=== PATIENT | female | born 1935 | race Caucasian/White ===

== ENCOUNTER → 2018-07-14 09:28 | Outpatient (CLI) | payer MEDICARE ==
[~2018-07-14 09:28] MED LIST: ASPIRIN EC81 M1 PO; CILOSTAZOL100 MG PO; K-DUR20 MEQ PO; LIPITOR40 MG PO; LOMOTIL 2.5-0.1 EAC1 PO; PLAVIX75 MG PO; ULTRAM50 MG PO
[2018-07-14 12:22] LABS: BASOPHILS 0.2 % (0-2); EOSINOPHILS 1.9 % (0-7); HEMOGLOBIN 14.8 g/dL (12-16); IMMATURE GRANULOCYTES 0.2 % (0-5); LYMPHOCYTES 39.6 % (15-50); MCH 38.7 pg (26.0-34.0); MCHC 35.2 g/dL (31.0-37.0); MCV 109.9 fL (80.0-100.0); MEAN PLATELET VOLUME 8.3 fL (7.4-10.4); MONOCYTES 7.3 % (2-11); NEUTROPHILS 50.8 % (40-80); PLATELET COUNT 242 10x3/uL (130-400); RBC 3.82 10x6/uL (4.00-5.40); RDW 12.4 % (11.5-14.5); WBC 6.3 10x3/uL (4.8-10.8)
[2018-07-19 08:18] VITALS: BMI 15.6
== END | disposition home or self-care (01) ==
LOC: D.CT 09:28
PROVIDERS: ATTEND Internal Medicine Gastroenterology
DX: R10.9 Unspecified abdominal pain (principal); R19.7 Diarrhea, unspecified; K92.1 Melena

== ENCOUNTER 2018-07-19 07:14 | Day surgery (SDC) | payer MEDICARE ==
[~2018-07-19] VITALS: Ht 152.4 cm; Wt 36.4 kg
[2018-07-19 07:40] LABS: BASOPHILS 0.4 % (0-2); HEMATOCRIT 41.1 % (36.0-48.0); HEMOGLOBIN 14.7 g/dL (12-16); IMMATURE GRANULOCYTES 0.1 % (0-5); LYMPHOCYTES 37.7 % (15-50); MCH 39.3 pg (26.0-34.0); MCHC 35.8 g/dL (31.0-37.0); MCV 109.9 fL (80.0-100.0); MEAN PLATELET VOLUME 8.3 fL (7.4-10.4); MONOCYTES 9.4 % (2-11); NEUTROPHILS 50.4 % (40-80); PLATELET COUNT 264 10x3/uL (130-400); RBC 3.74 10x6/uL (4.00-5.40); RDW 12.5 % (11.5-14.5)
[2018-07-19 07:52] LABS: CALC OSMOLALITY 268 mosm/kg (275-300); CALCIUM 9.1 mg/dL (8.5-10.1); CARBON DIOXIDE 23.6 mmol/L (21.0-32.0); CHLORIDE - SERUM 101 mmol/L (98-107); CREATININE - SERUM 0.7 mg/dL (0.6-1.3); GLUCOSE 127 mg/dL (74-106); POTASSIUM - SERUM 3.2 mmol/L (3.5-5.1); SODIUM 135 mmol/L (136-145); UREA NITROGEN 4 mg/dL (7-18); eGFR NON AFRICAN AMERICAN 85 mL/min (90-120)
[2018-07-19] MEDS ORDERED: K-DUR20 MEQ PO (08:09)
[2018-07-19] MEDS ORDERED: PLAVIX75 MG PO (08:09)
[2018-07-19] MEDS ORDERED: LIPITOR40 MG PO (08:10)
[2018-07-19] MEDS ORDERED: ASPIRIN EC81 M1 PO (08:10)
[2018-07-19] MEDS ORDERED: CILOSTAZOL100 MG PO (08:10)
[2018-07-19] MEDS ORDERED: LOMOTIL 2.5-0.1 EAC1 PO (08:11)
[2018-07-19] MEDS ORDERED: ULTRAM50 MG PO (08:11)
[2018-07-19 08:18] VITALS: BP 92/50; Ht 152.4 cm; Wt 36.4 kg
--- NOTE | 2018-07-19 10:33 | NUR ---
PT DC INSTRUCTIONS REVIEWED AT THIS TIME, PT VERBALIZES UNDERSTANDING. PT IV REMOVED AT THIS TIME, INTACT NO REDNESS OR SWELLING NOTED AT SITE.
--- NOTE | 2018-07-19 10:40 | NUR ---
PT LEAVING OPS UNIT AT THIS TIME VIA WC.
--- NOTE | 2018-07-19 16:06 | OP ---
PATIENT NAME: SURAJ FRANKS MEDICAL RECORD: [id number] LOCATION:[facility] ADMISSION DATE: SURGEON: AISHA SOL DO DATE OF OPERATION: 07/19/2018 PROCEDURE: Colonoscopy with biopsies and polypectomy. INDICATIONS FOR PROCEDURE: Diarrhea, hematochezia, lower abdominal pain or loss of weight. SCOPE: Olympus video pediatric colonoscope. MEDICATIONS: Propofol 200 mg IV per anesthesia. ESTIMATED BLOOD LOSS: Minimal. COMPLICATIONS: None. FINDINGS AND DESCRIPTION OF PROCEDURE: Informed consent was given. The patient was made comfortable with the above medication. After reaching an adequate level of sedation by slow IV push, the patient was placed in the left side. A digital rectal examination was performed and revealed external hemorrhoids. The endoscope was advanced under direct visualization through the rectum to the cecum, confirmed by the presence of the appendiceal orifice and ileocecal valve. The endoscope was slowly withdrawn and mucosa was carefully examined. The prep quality was good. There was evidence of moderate diverticulosis involving the sigmoid colon. There was a single, benign-appearing polyp in the descending colon, which measured approximately 3-mm in diameter. It was removed in its entirety using cold forceps. There was a patchy area of abnormal-appearing mucosa at approximately 20 cm from the anal verge in the sigmoid colon, which was erythematous and congested. Cold forceps biopsies were taken to submit for histology. Retroflexion was not performed in the rectum due to difficulty maintaining insufflation. Slow withdrawal revealed some internal hemorrhoids as well. There were no other abnormalities on the colonoscopy. Stool was collected during the study to submit for an xTAG to rule out any infectious reasons for the change in her bowels. Random biopsies were also taken throughout the colon to exclude microscopic colitis. The endoscope was withdrawn from the patient. The patient tolerated the procedure well and there were no complications. IMPRESSIONS: 1. Mild diverticulosis. 2. A single polyp located in the descending colon, which was removed with cold forceps. 3. Abnormal mucosa at 20 cm, which could be consistent with colitis. I believe this is likely just peridiverticular changes. 4. Internal and external hemorrhoids. 5. Random biopsies taken and stool collected to rule out infection and microscopic colitis. PLAN AND RECOMMENDATIONS: 1. Discharge home when recovery parameters are met. 2. High fiber diet. 3. Continue current medications. 4. Okay to continue Imodium or Lomotil as needed as this has resolved her OPERATIVE REPORT [id number] SURAJ FRANKS diarrhea. 5. We will follow up biopsy specimen results. 6. No further colonoscopies are necessary unless symptoms warrant evaluation. TRANSINT:[id number] Voice Confirmation ID: [id number] DOCUMENT ID: [id number] AISHA SOL DO at 1606 CC: [id number] DICTATION DATE: 07/19/18932 SCRAPER OPERATOR: 07/19/18 1212 [facility] 07/19/18 [facility] [address] [place] [address]
== END 2018-07-19 10:40 | disposition home or self-care (01) ==
LOC: D.OPS 07:14
PROVIDERS: Anesthesiology; ATTEND Internal Medicine Gastroenterology
DX: K57.30 Diverticulosis of large intestine without perforation or abscess without bleeding (principal); K63.5 Polyp of colon; K52.9 Noninfective gastroenteritis and colitis, unspecified; K64.8 Other hemorrhoids; K64.4 Residual hemorrhoidal skin tags; Z01.812 Encounter for preprocedural laboratory examination

== ENCOUNTER → 2020-08-06 15:36 | Outpatient (CLI) | payer MEDICARE ==
[2018-07-19 08:18] VITALS: BMI 15.6
[2020-08-06 16:16] LABS: BILIRUBIN NEGATIVE (NEGATIVE); KETONE NEGATIVE (NEGATIVE); NITRITE POSITIVE (NEGATIVE); UROBILINOGEN NORMAL mg/dL (< 2)
[2020-08-06 16:17] LABS: BACTERIA MANY HPF (NONE SEEN); SQUAMOUS EPITHELIAL 0-5 HPF (0-4); WHITE CELLS - URINE >50 HPF (0-4)
== END | disposition home or self-care (01) ==
LOC: D.LABREF 15:36
PROVIDERS: ATTEND Family Medicine
DX: K57.91 Diverticulosis of intestine, part unspecified, without perforation or abscess with bleeding (principal)

== ENCOUNTER → 2020-08-24 09:26 | Outpatient (CLI) | payer MEDICARE ==
[2018-07-19 08:18] VITALS: BMI 15.6
[2020-08-24 09:48] LABS: EOSINOPHILS 6.2 % (0-7); HEMATOCRIT 24.4 % (36.0-48.0); HEMOGLOBIN 8.1 g/dL (12-16); LYMPHOCYTES 39.9 % (15-50); MCH 36.8 pg (26.0-34.0); MCHC 33.2 g/dL (31.0-37.0); MEAN PLATELET VOLUME 5.8 fL (7.4-10.4); MONOCYTES 7.9 % (2-11); RDW 16.8 % (11.5-14.5); WBC 6.1 10x3/uL (4.8-10.8)
[2020-08-24 10:04] LABS: PLATELET COUNT 405 10x3/uL (130-400)
[2020-08-24 10:20] LABS: ALBUMIN 2.1 g/dL (3.4-5.0); ALKALINE PHOSPHATASE 64 U/L (30-120); ALT (SGPT) 28 U/L (10-68); BILIRUBIN - TOTAL 0.13 mg/dL (0.2-1.3); CALC OSMOLALITY 281 mosm/kg (275-300); CARBON DIOXIDE 29.6 mmol/L (21.0-32.0); CHLORIDE - SERUM 107 mmol/L (98-107); CHOL - HDL RATIO 2.5 ratio (2.3-4.1); CHOLESTEROL, TOTAL 169 mg/dL (0-200); CREATININE - SERUM 0.7 mg/dL (0.6-1.3); HDL CHOLESTEROL 69 mg/dL (32-96); LDL CHOLESTEROL 77 mg/dL (0-100); LDL-HDL RATIO 1.1 ratio (1.5-3.5); PROTEIN - SERUM 5.7 g/dL (6.4-8.2); SODIUM 141 mmol/L (136-145); TRIGLYCERIDE 116 mg/dL (30-200); UREA NITROGEN 18 mg/dL (7-18); eGFR NON AFRICAN AMERICAN 85 mL/min (90-120)
[2020-08-24 10:25] LABS: GLUCOSE 74 mg/dL (74-106)
== END | disposition home or self-care (01) ==
LOC: D.LABREF 09:26
PROVIDERS: ATTEND Family Medicine
DX: E46 Unspecified protein-calorie malnutrition (principal); I73.9 Peripheral vascular disease, unspecified; E78.5 Hyperlipidemia, unspecified; K57.91 Diverticulosis of intestine, part unspecified, without perforation or abscess with bleeding

== ENCOUNTER → 2020-08-28 21:17 | Outpatient (CLI) | payer MEDICARE ==
[2018-07-19 08:18] VITALS: BMI 15.6
[2020-08-28 21:31] LABS: BASOPHILS 1.1 % (0-2); EOSINOPHILS 4.7 % (0-7); HEMATOCRIT 25.6 % (36.0-48.0); HEMOGLOBIN 8.8 g/dL (12-16); MCHC 34.3 g/dL (31.0-37.0); MCV 110.7 fL (80.0-100.0); MEAN PLATELET VOLUME 6.2 fL (7.4-10.4); MONOCYTES 9.4 % (2-11); NEUTROPHILS 44.8 % (40-80); PLATELET COUNT 379 10x3/uL (130-400); RBC 2.31 10x6/uL (4.00-5.40); RDW 16.2 % (11.5-14.5); WBC 6.4 10x3/uL (4.8-10.8)
== END | disposition home or self-care (01) ==
LOC: D.LABREF 21:17
PROVIDERS: ATTEND Family Medicine
DX: D50.0 Iron deficiency anemia secondary to blood loss (chronic) (principal)